=== PATIENT | male | born 2000 | race Caucasian/White ===

== ENCOUNTER 2021-10-14 11:18 | Emergency (ER) | payer BC ==
[2021-10-14] MEDS ORDERED: Lactated Ringers 1,000 ML IV ONE (11:44)
[2021-10-14] MEDS ORDERED: Diphtheria,Pertussis(Acell),Tetanus Vaccine 0.5 ML Syringe IM ONE (11:44)
[2021-10-14] MEDS ORDERED: Ondansetron 4 MG/2 ML SDV IVPUSH ONE (11:44)
[2021-10-14] MEDS ORDERED: Morphine 4 MG/ML VIAL IVPUSH ONE (11:45)
[2021-10-14] MEDS ORDERED: Lidocaine 1% 5 ML VIAL INJECT ONE (11:45)
[2021-10-14] MEDS ORDERED: Bacitracin Oint 1 GM U/D Packet TOP ONE (13:53)
== END 2021-10-14 14:06 | disposition home or self-care (01) ==
LOC: MW.ED 11:18
DX: S61.411A Laceration without foreign body of right hand, initial encounter (principal); Z23 Encounter for immunization; W26.8XXA Contact with other sharp object(s), not elsewhere classified, initial encounter
CPT/HCPCS: 12002; 73130; 90471; 90715; 96361; 96374; 96375; 99283; J2270; J2405; J7120